=== PATIENT | male | born 1950 | race Caucasian/White ===

== ENCOUNTER → 2018-01-18 | Outpatient (CLI) | payer OTHER ==
[~2018-01-18] MED LIST: PREDNISONE50 MG PO
--- NOTE | ~2018-01-18 | SLE ---
[facility] [address] [place] [address] POLYSOMNOGRAPHY STUDY Name: KEVIN CHOU Room #: REG [facility]..#: [id number] Admission: 01/18/18 Attend Phys: Jazmine Lund MD Discharge: Date of : 50 Report #: [id number] THIS REPORT FOR: //name// CC: Jazmine Lund [facility] physician/PCP HISTORY: This is a 67-year-old, height 6 feet, weight 290 pounds. Usually goes to bed at 9:30 to 10, gets out of bed 5:30 to 6:00, does not feel refreshed. Positive history of snoring and daytime somnolence. COMMENTS: PACs noted. SLEEP SUMMARY: Total sleep time 349 minutes. Sleep efficiency 81%. Sleep latency 18 minutes, REM latency 178 minutes. SLEEP STAGE: 1 -- 40%, 2 -- 48%, REM -- 14%. Central apnea 7, obstructive apnea 39, hypopnea 84. Apnea-hypopnea index 22 events per sleep hour. Non-REM AHI 18, REM AHI 47 events per sleep hour. Respiratory effort related arousal 2.2 events per sleep hour. Supine AHI 50, left lateral 12, right lateral 22 events per sleep hour. Periodic limb movement with arousal index 5.3 events per sleep hour. 51% of time in snoring. Low oxygen saturation 78%, spending 3.5% of recording time less than 90%. IMPRESSION: 1. Obstructive sleep, apnea/hypopnea, G47.33. 2. Periodic limb movement with arousal index of 5.3 events per sleep hour. 3. Premature atrial contractions noted. 4. The patient's events did not start occurring until later in the study. SUGGESTIONS: 1. In addition to specific therapy, the patient should be cautioned regarding driving or operating dangerous machinery unless fully alert. 2. The patient should be cautioned regarding the use of respiratory depressants. 3. Weight loss and TSH if not done is recommended. 4. Oral appliance or appropriate surgery may be considered with appropriate followup. 5. The usual sleep apnea suggestions are recommended. 6. The patient should be cautioned regarding the use of respiratory depressants. 7. An auto titrating CPAP is initially recommended, 5-15 cm water pressure. Heated humidity and a full facemask is recommended 8. If signs and symptoms not improved with therapy, further evaluation is [facility] [address] [place] [address] POLYSOMNOGRAPHY STUDY Name: KEVIN CHOU Room #: REG [facility]vin#: [id number] Admission: 01/18/18 Attend Phys: Jazmine Lund MD Discharge: Date of : 50 Report #: [id number] recommended. Please do not hesitate to contact me if I may be of further assistance. <ELECTRONICALLY SIGNED> By: Jazmine Lund MD 01/28/18 1045 1842 [id number] Jazmine Lund MD /nicolas
== END ==
LOC: EDSTATUS 12-17 10:49 → SLEEPLAB 12-17 13:42
DX: G47.33 Obstructive sleep apnea (adult) (pediatric) (principal)

== ENCOUNTER → 2019-01-06 | Outpatient (CLI) | payer OTHER ==
[2019-01-06 14:55] LABS: ABSOLUTE NEUTROPHILS 5.2 thou/uL (1.4-8.2); BASOPHILS 1.2 % (0.0-2.0); HEMATOCRIT 46.4 % (42.0-52.0); LYMPHOCYTES 20.8 % (24.0-44.0); MCH 30.1 pg (26.0-34.0); MCHC 34.5 g/dL (28.0-37.0); MCV 87.3 fL (80.0-100.0); MONOCYTES 8.1 % (1.0-8.0); PLATELET COUNT 206 thou/uL (150-400); POLYS 66.9 % (36.0-66.0); RBC 5.32 mil/uL (4.50-6.00); RDW 12.9 % (10.5-14.5); WBC 7.8 thou/uL (4.0-11.0)
[2019-01-06 15:24] LABS: ALBUMIN 3.7 g/dL (3.4-5.0); CALCIUM 9.3 mg/dL (8.5-10.1); CREATININE 1.1 mg/dL (0.7-1.3); POTASSIUM 4.3 mmol/L (3.5-5.1); TOTAL BILIRUBIN 0.5 mg/dL (<0.1-1.0); TOTAL PROTEIN 6.7 g/dL (6.4-8.2)
[2019-01-07 00:06] LABS: GLYCOHEMOGLOBIN (HGB A1C) 9.7 % (4.8-5.6)
== END ==
LOC: RAD 14:15
PROVIDERS: Nurse Practitioner
DX: Z00.00 Encounter for general adult medical examination without abnormal findings (principal); M25.532 Pain in left wrist; W19.XXXA Unspecified fall, initial encounter

== ENCOUNTER → 2019-02-08 | Outpatient (CLI) | payer OTHER ==
[~2019-02-08] MED LIST changes: +IBUPROFEN 200200 M1 PO; +NEURONTIN 300300 M1 PO; +TRI-BUFFERED A325 M1 PO
== END ==
LOC: CAT 09:34
DX: Z13.6 Encounter for screening for cardiovascular disorders (principal); E78.00 Pure hypercholesterolemia, unspecified; I25.10 Atherosclerotic heart disease of native coronary artery without angina pectoris

== ENCOUNTER 2019-02-09 05:31 | Inpatient (IN) | payer OTHER ==
[2019-02-04 15:02] LABS: URINE BILIRUBIN NEGATIVE (Negative); URINE BLOOD NEGATIVE (Negative); URINE CLARITY CLEAR; URINE COLOR YELLOW; URINE GLUCOSE-RANDOM* 2+ (Negative); URINE KETONES NEGATIVE (Negative); URINE LEUKOCYTES-REFLEX NEGATIVE (Negative); URINE NITRITE-REFLEX NEGATIVE (Negative); URINE PROTEIN (DIPSTICK) NEGATIVE (Negative); URINE SPECIFIC GRAVITY >= 1.030 (1.005-1.035); URINE UROBILINOGEN 0.2 E.U./dl (0.2-1.0)
[2019-02-04 15:05] LABS: HEMATOCRIT 44.3 % (42.0-52.0); HEMOGLOBIN 15.2 gm/dL (14.0-18.0); MCH 30.2 pg (26.0-34.0); MCHC 34.4 g/dL (28.0-37.0); MCV 87.7 fL (80.0-100.0); RBC 5.05 mil/uL (4.50-6.00); RDW 13.2 % (10.5-14.5); WBC 5.9 thou/uL (4.0-11.0)
[2019-02-04 15:16] LABS: ALBUMIN 3.7 g/dL (3.4-5.0); CALCIUM 9.2 mg/dL (8.5-10.1); CREATININE 1.2 mg/dL (0.7-1.3); POTASSIUM 4.4 mmol/L (3.5-5.1)
--- NOTE | 2019-02-06 13:19 | EKG ---
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[employer] : 1950 Requested By: Jorge Beck Order Number: [id number] MD: Robert Loya Measurements Intervals [place] Rate: 76 P: 47 CT: 165 QRS: 45 QRSD: 99 T: 45 QT: 399 QTc: 449 Interpretive Statements Sinus rhythm Sinus arrhythmia No previous ECG available for comparison Electronically Signed On 02-06-2019 13:19:11 CDT by Robert Loya [email or web address] ��������������������������������������������� <ELECTRONICALLY SIGNED> ���������������������������������������� By: Robert Loya MD, LOCATED WITHIN [facility] ��������������������������������������������� 02/06/19 1319 1456 1456 Robert Loya MD, FACC /EPI
[2019-02-09] VITALS (7 sets, daily range): BP systolic 15–172; BP diastolic 71–125
[~2019-02-09] VITALS: Ht 182.9 cm; Wt 133.8 kg
[~2019-02-09 05:31] MED LIST changes: -NEURONTIN 300300 M1 PO; -TRI-BUFFERED A325 M1 PO
--- NOTE | 2019-02-09 19:57 | NUR ---
PT ARRIVED TO FLOOR POST RT.TKA AT 1700 IN STABLE CONDITION.POST OP VS INTIATED AND ELEVATED BP NOTED.DR ARTEAGA NOTIFIED.ORDER NOTED.DR AGUILAR CAME TO SEE PT BUT FAMILY REPORTED THAT DR SMALLWOOD WAS THE PCP.ORDER CANCELLED . RECEIVED CALL FROM DR SMALLWOOD AND ORDER NOTED.REPORT OFF TO NOC RN.
[2019-02-10] VITALS (7 sets, daily range): BP systolic 117–126; BP diastolic 64–78
--- NOTE | 2019-02-10 01:34 | NUR ---
PT'S BP ELEVATED AT START OF SHIFT,MED ADMINISTERED,EFFECTIVE.ICE PACK TO HIS R KNEE NEEDED.DRSG C/D/I.BG MONITORED,EDUCATION GIVEN PT IS NEWLY DX.PT SLEPING WITH HIS CPAP.FARHAT P[place]NAM AND SCD IN PLACE.IVF AND IV ABX ORDERD.PT SLEEPING ON HIS BED AT THIS TIME.CALL LIGHT WITHIN REACH.
[2019-02-10 05:38] LABS: HEMOGLOBIN 13.7 gm/dL (14.0-18.0); MCH 30.1 pg (26.0-34.0); MCHC 34.3 g/dL (28.0-37.0); MCV 87.7 fL (80.0-100.0); RBC 4.56 mil/uL (4.50-6.00); RDW 13.3 % (10.5-14.5); WBC 10.5 thou/uL (4.0-11.0)
--- NOTE | 2019-02-10 11:20 | O ---
[facility] [place] [address] OPERATIVE REPORT Name: KEVIN CHOU Room #: 421-P [facility] IN M.R.#: [id number] Admission: 02/09/19 ������������������ Attend Phys: Jorge Beck MD Discharge: ������������������ Date of : 50 Report #: [id number] THIS REPORT FOR: //name// CC: Didier Beck DATE OF SERVICE: 02/09/2019 PREOPERATIVE DIAGNOSIS: Right knee osteoarthritis. POSTOPERATIVE DIAGNOSIS: Right knee osteoarthritis. PROCEDURE: Right total knee arthroplasty using Navio robotic assistance. SURGEON: Jorge Beck M.D. OIL PUMPER: Irasema Felton PA-C. INDICATIONS FOR OIL PUMPER: Throughout the case, extensive retraction and manipulation of the knee was required. This was afforded to me by my engineer first assistant. ANESTHESIA: LMA with an adductor canal block. IMPLANTS: [employer]ana [employer]hew size 7 Legion cobalt-chrome posterior stabilized femur, size 5 tibia, size 38 patella and a 9 highly constrained polyethylene. TOURNIQUET TIME: 65 minutes. ESTIMATED BLOOD LOSS: 25 mL. COMPLICATIONS: None. SPECIMENS: None. CONDITION UPON LEAVING THE OPERATING ROOM: Stable. INDICATION FOR PROCEDURE: The patient is a 68-year-old gentleman with severe right knee valgus osteoarthritis. He had failed conservative measures for this and after discussion with him, he elected for right total knee arthroplasty. DESCRIPTION OF PROCEDURE: Risks, benefits, alternatives and complications were discussed in detail with the patient including, but not limited to risk of anesthesia; risk of damage to nerves, arteries, blood vessels; risk for infection or bleeding; risk for continued knee pain and need for reoperation. Informed consent was obtained from the patient. Right knee was appropriately marked in the preoperative holding area. IV Ancef was given for preoperative [facility] [address] [place] [address] OPERATIVE REPORT Name: KEVIN CHOU LUIS Room #: 421-P [facility] IN M.R.#: [id number] Admission: 02/09/19 ������������������ Attend Phys: Jorge Beck MD Discharge: ������������������ Date of : 50 Report #: [id number] antibiotics. Adductor canal block was placed by Anesthesia. He was brought to the operating room and placed in supine position on the operating room table. LMA anesthesia was induced without complication. Tourniquet was placed on the right thigh. Right lower extremity was prepped and draped in the normal sterile fashion. Timeout was performed, properly identifying the patient and procedure as well as instrumentation. All in the operating room were in agreement. Right lower extremity was exsanguinated, tourniquet was inflated. Tourniquet time was 65 minutes. Standard midline approach in the knee was made to the knee with a 10 blade through the skin. Dissection was taken down sharply to the fascia and deep flaps were developed medially and laterally. Fresh 10 blade was used to make a medial parapatellar arthrotomy and the knee was inspected. There was severe lateral compartment osteoarthritic change with moderate patellofemoral involvement. ACL and PCL were removed sharply. Reference pins were then placed in the femur and the tibia for the Navio system and the knee was then digitally mapped using the Navio robotic system. We sized a size 7 femur and a size 5 tibia with a 10 polyethylene. After acceptance of the intraoperative plan, the distal femoral cut was then made with a Navio bur. The 4-in-1 size 7 cutting block was then placed and anterior, posterior and chamfer cuts were made. The knee was then hyperflexed and the remainder of the menisci removed with Bovie cautery. Tibial resection was then made and placement of the resection guide was performed using the Navio system. After this, flexion and extension gaps were checked and found to have good balance laterally in flexion and extension. It was somewhat lax medially, but we did not want to anabelle this by doing a large lateral release and it was felt that a highly constrained polyethylene would be needed. The tibia was sized and found to be a size 5. A size 5 tibia was placed, pinned and punched. A size 7 femoral trial was placed and pinned. The box cut was made. This was then trialed with a 9 highly constrained polyethylene. Knee was taken through range of motion and found to have good balance in flexion and extension, both medially and laterally, with a millimeter of laxity medially and laterally throughout range of motion. This was verified digitally. After this, the 9 mm was taken off the posterior surface of the patella and a size 38 patellar trial button was placed. Knee was taken through range of motion and found to have good patellar tracking. Trial components were removed. Bone ends were thoroughly irrigated with normal saline. Final size 5 tibia, size 7 Legion cobalt-chrome posterior stabilized femur and a size 38 patella were cemented in place using standard cementation techniques. While the cement cured, a periarticular injection consisting of morphine, ropivacaine, epinephrine and Toradol was placed around the knee joint capsule. After the cement cured, the tourniquet was deflated. Hemostasis was obtained with Bovie cautery. Final size 9 highly constrained polyethylene was placed. A gram of vancomycin was placed deep in the joint. The fascia was closed with 0 Vicryl, skin was closed with 2-0 Vicryl and 3-0 Monocryl. Dermabond and a HUE dressing [address] [address] OPERATIVE REPORT Name: KEVIN CHOU Room #: 421-P [facility] IN M.R.#: [id number] Admission: 02/09/19 ������������������ Attend Phys: Jorge Beck MD Discharge: ������������������ Date of : 50 Report #: [id number] was applied. The patient tolerated this procedure well and went to recovery room under the care of Anesthesia postoperatively. ��������������������������������������������� <ELECTRONICALLY SIGNED> ���������������������������������������� By: Jorge Beck MD ��������������������������������������������� 02/10/19 1120 1432 1602 Jorge Beck MD /nt
[2019-02-10] MEDS ORDERED: TRI-BUFFERED A325 M1 PO (11:43)
[2019-02-10] MEDS ORDERED: NEURONTIN 300300 M1 PO (11:43)
--- NOTE | 2019-02-10 13:15 | NUR ---
Pt is an employee in the [employer]. He is a&ox4 and anticipates dc home later today. Single Needle Operator visited with the pt and his spouse at bedside. Pt has access to a rwalker for home use. He plans to do outpt therapy here. Has supportive spouse and will be on medical leave until cleared by ortho. Pt newly dx with dm. Discuss options for meter and strips. No cm interventions indicated at this time.
--- NOTE | 2019-02-10 19:31 | NUR ---
Pt in and out of bed with assist.Assessment completed.vss.insulin given as ordered prior to meal intake.Ambulated in hallways and stairs with therapist, good endurance noted.Dr Salmeron here early this shift and notified about pt dc home.[facility].Dc summary complied and reviewed with pt and .Lyn whyte dc'd.At 1732,pt dc home with in wc.
== END 2019-02-10 17:32 | disposition home or self-care (01) | DRG 470 ==
LOC: TBA 05:31 → PRE 09:37 → 4E 16:59 → ENTRNSPT 02-10 16:54 → 4E 02-10 17:32
PROVIDERS: ADMIT Orthopaedic Surgery
PROC: 8E0Y0CZ Robotic Assisted Procedure of Lower Extremity, Open Approach (ICD-10-PCS; principal; 2019-02-09)
PROC: 0SRC0J9 Replacement of Right Knee Joint with Synthetic Substitute, Cemented, Open Approach (ICD-10-PCS; principal; 2019-02-09)
DX: M17.11 Unilateral primary osteoarthritis, right knee (principal); E11.9 Type 2 diabetes mellitus without complications; Z79.899 Other long term (current) drug therapy
CPT/HCPCS: 10783; 50010; 50101; 50415; 50954; 51130; 51225; 53000; 53078; 53364; 54118; 56527; 56528; 57095; 57103; 57109; 57110; 57113; 57127; 57180; 62110; 62900; 64043; 65060; 70005

== ENCOUNTER → 2019-03-09 | Outpatient (CLI) | payer OTHER ==
[~2019-03-09] MED LIST changes: +NEURONTIN 300300 M1 PO; +TRI-BUFFERED A325 M1 PO
== END ==
LOC: ULTRA 14:43
DX: M79.89 Other specified soft tissue disorders (principal); M79.604 Pain in right leg; Z96.651 Presence of right artificial knee joint